=== PATIENT | female | born 1985 | race Caucasian/White ===

== ENCOUNTER 2018-10-03 01:42 | Emergency (ER) | payer OTHER, MEDICAID ==
[~2018-10-03] VITALS: Ht 165.1 cm; Wt 108.4 kg
[2018-10-03] MEDS ORDERED: ABILIFY15 MG PO (01:54)
[2018-10-03] MEDS ORDERED: PROZAC20 MG PO (01:54)
[2018-10-03] MEDS ORDERED: DESYREL300 MG PO (01:55)
[2018-10-03] MEDS ORDERED: BUSPIRONE HCL10 MG PO (01:55)
[2018-10-03 02:10] LABS: ABSOLUTE BASOPHILS 0.1 thou/uL (0.0-0.2); ABSOLUTE EOSINOPHILS 0.1 thou/uL (0.0-0.7); ABSOLUTE LYMPHOCYTES 1.8 thou/uL (0.8-5.3); ABSOLUTE MONOCYTES 0.7 thou/uL (0.0-1.2); ABSOLUTE NEUTROPHILS 5.4 thou/uL (1.6-8.1); BASOPHILS 0.8 %; HEMATOCRIT 42.2 % (37.0-47.0); HEMOGLOBIN 14.5 gm/dL (12.0-15.0); LYMPHOCYTES 22.8 %; MCH 31.6 pg (26.0-34.0); MCHC 34.4 g/dL (28.0-37.0); MCV 91.9 fL (80.0-100.0); MONOCYTES 8.2 %; MPV 9.5 fl. (7.2-11.1); NUCLEATED RBCS 0 /100WBC; PLATELET COUNT* 173 thou/uL (150-400); POLYS 67.2 %; RBC 4.59 mil/uL (4.20-5.00); RDW-CV 13.3 % (10.5-14.5)
[2018-10-03 02:22] LABS: URINE BILIRUBIN NEGATIVE (Negative); URINE BLOOD TRACE (Negative); URINE CLARITY CLEAR; URINE COLOR YELLOW; URINE GLUCOSE-RANDOM NEGATIVE (Negative); URINE KETONES NEGATIVE (Negative); URINE LEUKOCYTES-REFLEX NEGATIVE (Negative); URINE NITRITE-REFLEX NEGATIVE (Negative); URINE PROTEIN 1+ (Negative); URINE SPECIFIC GRAVITY 1.025 (1.005-1.030); URINE UROBILINOGEN 0.2 E.U./dl (0.2-1.0)
[2018-10-03 02:25] LABS: AMP/METHAMP Negative (Negative); BARBITURATES Negative (Negative); BENZODIAZEPINES Negative (Negative); COCAINE Negative (Negative); METHADONE Negative (Negative); OPIATES Negative (Negative); PCP Negative (Negative); THC POSITIVE (Negative)
[2018-10-03 02:33] LABS: CALCIUM 8.2 mg/dL (8.5-10.1); CREATININE 0.9 mg/dL (0.6-1.3); POTASSIUM 3.4 mmol/L (3.5-5.1)
[2018-10-03 02:40] LABS: ALBUMIN 3.4 g/dL (3.4-5.0); TOTAL BILIRUBIN 0.2 mg/dL (<0.1-1.0)
[2018-10-03 02:48] LABS: ALCOHOL 18 mg/dL (<10); SALICYLATE < 2.8 mg/dL (2.8-20.0)
[2018-10-03 02:49] LABS: ACETAMINOPHEN < 2 ug/mL (10-30)
[2018-10-03 05:14] VITALS: BP 128/98
[2018-10-04 12:20] LABS: SQUAMOUS 4-10 Moderate /LPF (0-3)
[2018-10-04 12:21] LABS: BACTERIA-REFLEX 1-9 Few /HPF (None Seen); HYALINE CASTS 0-3 Few /LPF (None Seen); URINE RBC 0-2 Rare /HPF (0-2); URINE WBC-REFLEX 0-5 Rare /HPF (0-5)
[2018-10-04 12:22] LABS: CALCIUM OXALATE >10 Many /LPF (None Seen); MUCUS None Seen strn/LPF (None Seen)
== END 2018-10-03 05:14 | disposition home or self-care (01) ==
LOC: M.ERS 01:42
PROVIDERS: Family Medicine
DX: R45.4 Irritability and anger (principal); F32.9 Major depressive disorder, single episode, unspecified

== ENCOUNTER 2018-11-27 10:44 | Emergency (ER) | payer MEDICARE, OTHER, MEDICAID ==
[~2018-11-27] VITALS: Ht 165.1 cm; Wt 113.4 kg
[~2018-11-27 10:44] MED LIST: ABILIFY15 MG PO; BUSPIRONE HCL10 MG PO; DESYREL300 MG PO; PROZAC20 MG PO
[2018-11-27 11:01] LABS: URINE BILIRUBIN NEGATIVE (Negative); URINE BLOOD 2+ (Negative); URINE CLARITY CLEAR; URINE COLOR YELLOW; URINE GLUCOSE-RANDOM NEGATIVE (Negative); URINE KETONES NEGATIVE (Negative); URINE LEUKOCYTES-REFLEX NEGATIVE (Negative); URINE NITRITE-REFLEX NEGATIVE (Negative); URINE PROTEIN NEGATIVE (Negative); URINE SPECIFIC GRAVITY >= 1.030 (1.005-1.030); URINE UROBILINOGEN 0.2 E.U./dl (0.2-1.0)
[2018-11-27 11:09] LABS: SQUAMOUS >10 Many /LPF (0-3)
[2018-11-27 11:10] LABS: URINE RBC 3-10 Few /HPF (0-2); URINE WBC-REFLEX 0-5 Rare /HPF (0-5)
[2018-11-27 11:11] LABS: CASTS None Seen /LPF (None Seen); CRYSTALS None Seen /LPF (None Seen)
[2018-11-27] MEDS ORDERED: NORCO 5-325 TA1 EAC1 PO (11:18)
[2018-11-27 11:27] VITALS: BP 140/82
== END 2018-11-27 11:28 | disposition home or self-care (01) ==
LOC: M.ERS 10:44
PROVIDERS: Nurse Practitioner Family
DX: R10.2 Pelvic and perineal pain (principal); N80.9 Endometriosis, unspecified; E28.2 Polycystic ovarian syndrome; F32.9 Major depressive disorder, single episode, unspecified

== ENCOUNTER 2018-12-18 11:12 | Emergency (ER) | payer MEDICARE, OTHER, MEDICAID ==
[~2018-12-18] VITALS: Ht 165.1 cm; Wt 113.4 kg
[~2018-12-18 11:12] MED LIST changes: +NORCO 5-325 TA1 EAC1 PO
[2018-12-18] MEDS ORDERED: PRAZOSIN 1 MG CA1 M1 PO (11:23)
[2018-12-18] MEDS ORDERED: AMOXICILLIN 50500 MG PO (11:40)
[2018-12-18 11:54] VITALS: BP 135/80
== END 2018-12-18 11:54 | disposition home or self-care (01) ==
LOC: M.ERS 11:12
DX: J02.9 Acute pharyngitis, unspecified (principal); F41.9 Anxiety disorder, unspecified; F31.9 Bipolar disorder, unspecified

== ENCOUNTER 2019-09-25 17:22 | Emergency (ER) | payer MEDICARE, MEDICAID ==
[~2019-09-25] VITALS: Ht 167.6 cm; Wt 119.8 kg
[~2019-09-25 17:22] MED LIST changes: +AMOXICILLIN 50500 MG PO; +PRAZOSIN 1 MG CA1 M1 PO
[2019-09-25] MEDS ORDERED: CELEXA 20 MG TA20 MG PO (17:59)
[2019-09-25] MEDS ORDERED: METFORMIN HCL500 M3 PO (18:00)
[2019-09-25 18:03] LABS: URINE BILIRUBIN NEGATIVE (Negative); URINE BLOOD NEGATIVE (Negative); URINE CLARITY CLEAR; URINE COLOR YELLOW; URINE GLUCOSE-RANDOM NEGATIVE (Negative); URINE KETONES TRACE (Negative); URINE LEUKOCYTES-REFLEX NEGATIVE (Negative); URINE PROTEIN 1+ (Negative); URINE SPECIFIC GRAVITY >= 1.030 (1.005-1.030); URINE UROBILINOGEN 0.2 E.U./dl (0.2-1.0)
[2019-09-25 18:04] LABS: URINE NITRITE-REFLEX POSITIVE (Negative)
[2019-09-25] MEDS ORDERED: NORCO 5-325 TA1 EAC1 PO (18:09)
[2019-09-25] MEDS ORDERED: NAPROSYN500 MG PO (18:09)
[2019-09-25] MEDS ORDERED: ONDANSETRON HCL4 M2 PO (18:09)
[2019-09-25 18:22] LABS: SQUAMOUS >10 Many /LPF (0-3)
[2019-09-25 18:23] LABS: BACTERIA-REFLEX >30 Many /HPF (None Seen); CRYSTALS None Seen /LPF (None Seen); MUCUS 0-3 Light strn/LPF (None Seen)
[2019-09-25 18:25] LABS: CASTS None Seen /LPF (None Seen)
[2019-09-25 18:27] LABS: URINE RBC 0-2 Rare /HPF (0-2); URINE WBC-REFLEX 6-15 Few /HPF (0-5)
[2019-09-25] MEDS ORDERED: DOXYCYCLINE 10100 MG PO (18:34)
[2019-09-25 18:40] VITALS: BP 166/99
== END 2019-09-25 18:41 | disposition home or self-care (01) ==
LOC: M.ERS 17:22
PROVIDERS: Physician Assistant
DX: N39.0 Urinary tract infection, site not specified (principal); G89.29 Other chronic pain; R10.2 Pelvic and perineal pain; Z79.899 Other long term (current) drug therapy

== ENCOUNTER 2020-01-02 19:23 | Emergency (ER) | payer MEDICARE, MEDICAID ==
[~2020-01-02] VITALS: Ht 167.6 cm; Wt 119.8 kg
[~2020-01-02 19:23] MED LIST changes: +CELEXA 20 MG TA20 MG PO; +DOXYCYCLINE 10100 MG PO; +METFORMIN HCL500 M3 PO; +NAPROSYN500 MG PO; +ONDANSETRON HCL4 M2 PO
[2020-01-02 19:51] LABS: URINE BILIRUBIN NEGATIVE (Negative); URINE BLOOD TRACE (Negative); URINE CLARITY CLEAR; URINE COLOR YELLOW; URINE GLUCOSE-RANDOM NEGATIVE (Negative); URINE KETONES NEGATIVE (Negative); URINE LEUKOCYTES NEGATIVE (Negative); URINE NITRITE NEGATIVE (Negative); URINE PROTEIN 2+ (Negative); URINE SPECIFIC GRAVITY >= 1.030 (1.005-1.030); URINE UROBILINOGEN 0.2 E.U./dl (0.2-1.0)
[2020-01-02 19:59] LABS: HEMATOCRIT 43.3 % (37.0-47.0); HEMOGLOBIN 15.2 gm/dL (12.0-15.0); MCH 31.3 pg (26.0-34.0); MCV 89.4 fL (80.0-100.0); MPV 8.7 fl. (7.2-11.1); RBC 4.85 mil/uL (4.20-5.00); RDW-CV 13.6 % (10.5-14.5); WBC 8.7 thou/uL (4.0-11.0)
[2020-01-02 19:59] LABS: AMP/METHAMP Negative (Negative); BARBITURATES Negative (Negative); BENZODIAZEPINES Negative (Negative); COCAINE POSITIVE (Negative); METHADONE Negative (Negative); OPIATES Negative (Negative); PCP Negative (Negative); THC POSITIVE (Negative)
[2020-01-02 20:02] LABS: BACTERIA 1-9 Few /HPF (None Seen); CRYSTALS None Seen /LPF (None Seen); HYALINE CASTS 0-3 Few /LPF (None Seen); MUCUS 0-3 Light strn/LPF (None Seen); SQUAMOUS 0-3 Few /LPF (0-3); URINE RBC 0-2 Rare /HPF (0-2); URINE WBC 0-5 Rare /HPF (0-5)
[2020-01-02 20:15] LABS: ALBUMIN 3.7 g/dL (3.4-5.0); TOTAL BILIRUBIN 0.3 mg/dL (<0.1-1.0); TOTAL PROTEIN 7.7 g/dL (6.4-8.2)
[2020-01-02 20:27] LABS: ACETAMINOPHEN < 2 ug/mL (10-30); ALCOHOL < 10 mg/dL (<10); SALICYLATE 3.2 mg/dL (2.8-20.0)
[2020-01-02 23:16] VITALS: BP 162/93
== END 2020-01-02 23:18 | disposition home or self-care (01) ==
LOC: M.ERS 19:23
PROVIDERS: Personal Emergency Response Attendant
DX: R45.851 Suicidal ideations (principal); F14.129 Cocaine abuse with intoxication, unspecified; Z79.899 Other long term (current) drug therapy

== ENCOUNTER 2020-11-19 09:44 | Emergency (ER) | payer OTHER, MEDICAID ==
[~2020-11-19] VITALS: Ht 167.6 cm; Wt 108.9 kg
[2020-11-19] MEDS ORDERED: NEURONTIN300 MG PO (10:17)
[2020-11-19] MEDS ORDERED: MEDROLDOSEPACK PO (11:32)
[2020-11-19] MEDS ORDERED: FLEXERIL PO (11:32)
[2020-11-19] MEDS ORDERED: APAP W/CODEINE1 TA2 PO (11:32)
[2020-11-19 11:36] LABS: URINE BILIRUBIN NEGATIVE (Negative); URINE BLOOD NEGATIVE (Negative); URINE CLARITY SL CLOUDY; URINE COLOR YELLOW; URINE GLUCOSE-RANDOM NEGATIVE (Negative); URINE KETONES NEGATIVE (Negative); URINE LEUKOCYTES-REFLEX NEGATIVE (Negative); URINE PROTEIN TRACE (Negative); URINE SPECIFIC GRAVITY >= 1.030 (1.005-1.030); URINE UROBILINOGEN 0.2 E.U./dl (0.2-1.0)
[2020-11-19 11:37] LABS: URINE NITRITE-REFLEX POSITIVE (Negative)
[2020-11-19] MEDS ORDERED: BACTRIM DS TAB1 EACH PO (11:39)
[2020-11-19 11:41] LABS: BACTERIA-REFLEX >30 Many /HPF (None Seen); CASTS None Seen /LPF (None Seen); CRYSTALS None Seen /LPF (None Seen); MUCUS 0-3 Light strn/LPF (None Seen); SQUAMOUS 0-3 Few /LPF (0-3); URINE RBC 0-2 Rare /HPF (0-2); URINE WBC-REFLEX 6-15 Few /HPF (0-5)
[2020-11-19 11:55] VITALS: BP 160/94
== END 2020-11-19 12:04 | disposition home or self-care (01) ==
LOC: M.ERS 09:44
PROVIDERS: Physician Assistant
DX: N39.0 Urinary tract infection, site not specified (principal); F41.9 Anxiety disorder, unspecified; N80.9 Endometriosis, unspecified; F31.9 Bipolar disorder, unspecified; E28.2 Polycystic ovarian syndrome; P27.1 Bronchopulmonary dysplasia originating in the perinatal period; Z79.899 Other long term (current) drug therapy